=== PATIENT | male | born 2000 | race Caucasian/White ===

== ENCOUNTER 2020-05-31 14:42 | Outpatient (CLI) | payer OTHER ==
[2020-05-31 18:02] LABS: #Eosinphils 0.3 thou/uL (0.0-0.7); #Lymphocytes 2.1 thou/uL (1.20-3.40); #Monocytes 0.4 thou/uL (0.11-0.59); %Basophils 0.6 % (0.0-1.0); %Eosinophils 3.9 % (0.0-10.0); %Lymphocytes 31.1 % (28.0-48.0); %Monocytes 6.1 % (0.0-4.0); %Neutrophils 58.3 % (31.0-61.0); Hemoglobin 15.3 g/dL (14.0-18.0); Mean Corpuscular HGB CONC 32.1 g/dL (32.0-36.0); Mean Corpuscular Hemoglobin 29.4 pg (25.0-35.0); Mean Corpuscular Volume 91.4 fL (78.0-98.0); Mean Platelet Volume 8.9 fL (7.4-10.4); Platelet Count 208 thou/uL (130-400); RBC Distribution Width 12.3 % (11.5-14.5); Red Blood Cell (RBC) Count 5.22 mill/uL (4.00-5.20); White Blood Cell (WBC) Count 6.9 thou/uL (4.8-10.8)
[2020-06-01 12:46] LABS: SARS-CoV-2 MS2 Positive; SARS-CoV-2 N Gene Negative; SARS-CoV-2 S Gene Negative; SARS-CoV-2 by NAA Not Detected (NotDetected); SARS-CoV-2 orf1ab Negative
== END 2020-05-31 14:43 | disposition home or self-care (01) ==
LOC: LABBT 14:42
PROVIDERS: ATTEND Orthopaedic Surgery Hand Surgery
DX: Z01.812 Encounter for preprocedural laboratory examination (principal); S62.304A Unspecified fracture of fourth metacarpal bone, right hand, initial encounter for closed fracture; S62.306A Unspecified fracture of fifth metacarpal bone, right hand, initial encounter for closed fracture; Z20.828 Contact with and (suspected) exposure to other viral communicable diseases
CPT/HCPCS: 85025; 87635; U0003

== ENCOUNTER 2020-06-04 12:00 | Day surgery (SDC) | payer OTHER, SELFPAY ==
[2020-06-01 11:50] VITALS: BMI 25.0
[2020-06-04] MEDS ORDERED: Lidocaine 1% PF 5 ML VIAL ONE (12:29)
[2020-06-04] MEDS ORDERED: EPHEDRINE 25 MG/5 ML SYRINGE ONE (12:29)
[2020-06-04] MEDS ORDERED: PROPOFOL 200 MG/20 ML VIAL ONE (12:29)
[2020-06-04] MEDS ORDERED: Dexamethasone 20 MG/5 ML VIAL ONE (12:29)
[2020-06-04] MEDS ORDERED: Ondansetron PF 4 MG/2 ML Vial ONE (12:29)
[2020-06-04] MEDS ORDERED: Bacitracin Zinc Ointment 30 gm TUBE ONE (12:59)
[2020-06-04] MEDS ORDERED: Bupivacaine PF 0.5% 30 ML VIAL ONE (12:59)
[2020-06-04] MEDS ORDERED: Fentanyl 100 MCG/2 ML VIAL ONE ×2 (14:20→17:53)
[2020-06-04] MEDS ORDERED: Midazolam HCl 2 mg/2 ml Vial ONE ×2 (14:20→14:52)
[2020-06-04] MEDS ORDERED: Ketamine 50 MG/ML (10ML VIAL) ONE (14:56)
--- NOTE | 2020-06-04 17:41 | RAD ---
RIGHT HAND RADIOGRAPHS TWO VIEWS: Date: 06-04-2020 PROVIDED CLINICAL HISTORY: ORIF FINDINGS: Comparison 05-27-2020. Multiple spot fluoroscopic images were performed by Dr. Tran during the course of ORIF of fourth and fifth metacarpal fractures. IMPRESSION: As above. POS: [facility]
[2020-06-04] MEDS ORDERED: Ketorolac Tromethamine 30 MG/ML VIAL ONE (17:42)
[2020-06-04] MEDS ORDERED: HYDROcodone/Acetaminophen 5/325 mg Tablet ONE (18:19)
--- NOTE | 2020-06-04 22:42 | OP ---
DATE OF PROCEDURE: 06/04/2020 PREOPERATIVE DIAGNOSES: 1. Right hamate fracture. 2. Right small finger carpometacarpal joint dislocation. 3. Right ring finger metacarpal bone fracture, four-part. PROCEDURE PERFORMED: 1. Open reduction internal fixation of hamate fracture, right. 2. Open reduction internal fixation, small finger carpometacarpal joint dislocation, right. 3. Open reduction internal fixation, right ring finger, multiple comminuted metacarpal base fracture, right. 4. C-arm supervision, right upper extremity. SPECIMEN: None. TOURNIQUET TIME: Eighty minutes. ESTIMATED BLOOD LOSS: 10 cc. DESCRIPTION OF PROCEDURE: After successful general endotracheal anesthesia, limb was prepped and draped. The patient then had the limb exsanguinated, tourniquet inflated to 250 mmHg pressure, time-out was done appropriately. We outlined a zigzag incision centered between the two metacarpals down to the midportion of the hamate. We injected this with 20 cc of 0.5% Marcaine prior to the incision and after the procedure, another 10 cc were used. The patient had the incision carried through skin and subcutaneous tissue. We saw all branches of superficial ulnar nerve and operated between the two primary branches, protected each end. We made an incision first and split the retinaculum containing extensor mechanism. We began to open the capsule of carpometacarpal joint. We saw a 5 mm opening and fracture blood escaped here. Then, we elevated this and saw a 1 cm wide by 1 cm long with 4 mm of chondral surface attached to avulsion of the hamate. We preserved this. We gently debrided this. Then, we removed debris from the fifth metacarpal hamate joint and irrigated it. The ring finger metacarpal was exposed at its base. The fracture reduced and provisionally pinned and held with a clamp. There was no malrotation. We then reduced the small finger carpometacarpal joint dislocation and placed a 1.25 wire across this and the frontal sagittal plane was reduced well to include in [place] views. We also were able to then place two small 1.1 K-wires to hold the osteochondral fragment at its osseous base flat in a good position for the chondral surface and the joint against the hamate. We then dissected over the ridge of the dorsal metacarpal base fracture, placed two lag screws, where we had the provisional fixation with the K-wires and the [id number] clamp, but because we could not get a third lag screw, we used a T-plate with two screws proximal, two screws distal, maintaining appropriate rotation. All screws were 1.5 screws placed low-profile under the patient's tendons. We took our final radiographs. The wires were cut down to the level of the base of the bone without any clinical damage to the superficial ulnar nerve seen. We released the tourniquet. We took final radiographs and then prepared for closure. 2-0 undyed Vicryl was used to close the capsule of the carpometacarpal joint. We closed the retinaculum with 2-0 Vicryl in a running fashion restoring the tendon integrity and orientation. Subcutaneous closure was accomplished with the tourniquet down after obtaining hemostat with a running 4-0 Monocryl and then 4-0 nylon interrupted mattress pattern was used to close the skin. Bulky dressing was applied. Final injection of Marcaine was given and rotation max the opposite side. Job ID: [id number]
== END 2020-06-04 18:57 | disposition home or self-care (01) ==
LOC: SDC 12:00
PROVIDERS: ATTEND Orthopaedic Surgery Hand Surgery
PROC: 0RSS04Z Reposition Right Carpometacarpal Joint with Internal Fixation Device, Open Approach (ICD-10-PCS; principal; 2020-06-04)
PROC: 0PSM04Z Reposition Right Carpal with Internal Fixation Device, Open Approach (ICD-10-PCS; principal; 2020-06-04)
DX: S62.141A Displaced fracture of body of hamate [unciform] bone, right wrist, initial encounter for closed fracture (principal); S62.314A Displaced fracture of base of fourth metacarpal bone, right hand, initial encounter for closed fracture; S63.256A Unspecified dislocation of right little finger, initial encounter; F17.200 Nicotine dependence, unspecified, uncomplicated; W22.09XA Striking against other stationary object, initial encounter
CPT/HCPCS: 76000; J0690; J1100; J1885; J2250; J2405; J2704; J3010; J3490; S0020